=== PATIENT | female | born 1980 | race Caucasian/White ===

== ENCOUNTER → 2019-01-07 | Outpatient (CLI) | payer OTHER ==
[2019-01-12 10:10] LABS: HPV 16 Negative (Negative); HPV 18 Negative (Negative); HPV OTHER HR TYPES Negative (Negative)
== END | disposition home or self-care (01) ==
LOC: LAB SHORT 09:34 → LAB SRC 09:34
PROVIDERS: Registered Nurse
DX: Z12.4 Encounter for screening for malignant neoplasm of cervix (principal)
CPT/HCPCS: 87624; G0123

== ENCOUNTER 2019-08-23 18:53 | Emergency (ER) | payer OTHER ==
[~2019-08-23] VITALS: Ht 162.6 cm; Wt 81.7 kg
[2019-08-23] MEDS ORDERED: BIRTH CONTROL (19:07)
== END 2019-08-23 20:41 | disposition home or self-care (01) ==
LOC: ER 18:53
DX: S91.212A Laceration without foreign body of left great toe with damage to nail, initial encounter (principal); F17.200 Nicotine dependence, unspecified, uncomplicated; W01.10XA Fall on same level from slipping, tripping and stumbling with subsequent striking against unspecified object, initial encounter
CPT/HCPCS: 73630; 99283-25

== ENCOUNTER → 2021-07-27 | Outpatient (CLI) | payer OTHER ==
[~2021-07-27] MED LIST: BIRTH CONTROL
== END | disposition home or self-care (01) ==
LOC: LAB 10:13 → LAB SHORT 10:13
DX: R06.00 Dyspnea, unspecified (principal)
CPT/HCPCS: 85379